=== PATIENT | female | born 1960 | race Two or more races ===

== ENCOUNTER 2018-01-10 18:53 | Emergency (ER) | payer OTHER ==
[~2018-01-10] VITALS: Ht 157.5 cm; Wt 58.1 kg
[~2018-01-10 18:53] MED LIST: HUMALOG100 U/M1 SQ; KLONOPIN2 MG/TAB PO; LANTUS100 U/ML SQ; [UNRECOGNIZED DRUG - REMARK]
[2018-01-10] MEDS ORDERED: COREG CR10 MG PO (19:08)
[2018-01-10] MEDS ORDERED: FUROSEMIDE20 MG PO (19:09)
[2018-01-10] MEDS ORDERED: CARVEDILOL6.25 MG PO (19:09)
[2018-01-10] MEDS ORDERED: PLAVIX75 MG PO (19:10)
[2018-01-10] MEDS ORDERED: ASPIR 8181 MG PO (19:10)
[2018-01-10] MEDS ORDERED: LIPITOR20 MG PO (19:10)
[2018-01-10] MEDS ORDERED: LASIX20 MG PO (19:13)
== END 2018-01-11 00:25 | disposition home or self-care (01) ==
LOC: ER 18:53
DX: S20.211A Contusion of right front wall of thorax, initial encounter (principal); E11.65 Type 2 diabetes mellitus with hyperglycemia; W18.09XA Striking against other object with subsequent fall, initial encounter; Y93.01 Activity, walking, marching and hiking; Y92.488 Other paved roadways as the place of occurrence of the external cause; Y99.8 Other external cause status

== ENCOUNTER → 2018-03-11 | Outpatient (CLI) | payer OTHER ==
[~2018-03-11] MED LIST changes: +ASPIR 8181 MG PO; +CARVEDILOL6.25 MG PO; +COREG CR10 MG PO; +FUROSEMIDE20 MG PO; +LASIX20 MG PO; +LIPITOR20 MG PO; +PLAVIX75 MG PO
== END | disposition home or self-care (01) ==
LOC: RAD 08:10
DX: J43.2 Centrilobular emphysema (principal); R06.02 Shortness of breath; Z87.891 Personal history of nicotine dependence

== ENCOUNTER 2019-01-03 13:51 | Outpatient (CLI) | payer OTHER | END 2019-01-03 14:01 | disposition home or self-care (01) | LOC: TOM 13:51 | DX: M54.5 Low back pain (principal); M53.82 Other specified dorsopathies, cervical region ==

== ENCOUNTER 2019-01-05 14:27 | Outpatient (CLI) | payer OTHER | END 2019-01-05 14:35 | disposition home or self-care (01) | LOC: MAMO-SONO 14:27 | DX: Z12.31 Encounter for screening mammogram for malignant neoplasm of breast (principal); Z87.898 Personal history of other specified conditions; N63.10 Unspecified lump in the right breast, unspecified quadrant; N63.20 Unspecified lump in the left breast, unspecified quadrant; N62 Hypertrophy of breast; N63.11 Unspecified lump in the right breast, upper outer quadrant ==

== ENCOUNTER 2019-07-17 07:52 | Outpatient (CLI) | payer OTHER | END 2019-07-17 08:39 | disposition home or self-care (01) | LOC: MAMO-SONO 07:52 | DX: R16.0 Hepatomegaly, not elsewhere classified (principal); R06.02 Shortness of breath ==